=== PATIENT | male | born 1950 | race Caucasian/White ===

== ENCOUNTER 2016-06-08 15:23 | Emergency (ER) | payer MEDICARE ==
[~2016-06-08] VITALS: Ht 185.4 cm; Wt 99.8 kg
[2016-06-08 16:04] LABS: BASO # 0.1 10*3/uL (0.0-0.1); BASO % 0.8 % (0.0-1.0); EOS # 0.2 10*3/uL (0.0-0.4); EOS % 2.5 % (1.0-4.0); HEMATOCRIT 39.5 % (42.0-52.0); HEMOGLOBIN 13.5 g/dl (14.0-18.0); LYMPH # 1.5 10*3/uL (1.3-4.4); LYMPH % 19.3 % (27.0-41.0); MEAN CELL VOLUME 91.9 fl (80.0-94.0); MEAN CORPUSCULAR HGB 31.4 pg (27.0-31.0); MEAN CORPUSCULAR HGB CONC 34.2 g/dl (33.0-37.0); MEAN PLATELET VOLUME 11.1 fl (9.6-12.3); MONO # 0.8 10*3/uL (0.1-1.0); MONO % 10.3 % (3.0-9.0); NEUT # 5.1 10*3/uL (2.3-7.9); NEUT % 66.8 % (47.0-73.0); PLATELET COUNT AUTOMATED 179 10*3/uL (130-400); RED CELL DISTRI WIDTH 13.5 % (0-14.5); WHITE BLOOD COUNT 7.6 10*3/uL (4.8-10.8)
[2016-06-08 16:15] LABS: BUN 10 mg/dl (7-24); CARBON DIOXIDE 26 mmol/L (21-32); CHLORIDE 107 mmol/L (98-107); EST GLOM FILT AFRICAN AMERICAN > 60 ml/min; GLUCOSE 97 mg/dL (65-99); SODIUM 141 mmol/L (136-145)
== END 2016-06-08 18:07 | disposition short-term general hospital (02) ==
LOC: ED 15:23
PROVIDERS: Emergency Medicine
DX: I63.9 Cerebral infarction, unspecified (principal); Z86.73 Personal history of transient ischemic attack (TIA), and cerebral infarction without residual deficits

== ENCOUNTER → 2016-06-09 | Outpatient (CLI) | payer MEDICARE | END | disposition home or self-care (01) | LOC: CARD 02:09 | DX: I63.40 Cerebral infarction due to embolism of unspecified cerebral artery (principal) ==

== ENCOUNTER 2018-06-16 18:54 | Emergency (ER) | payer MEDICARE ==
[~2018-06-16] VITALS: Wt 86.2 kg
--- NOTE | ~2018-06-16 | EKG ---
[place], [place] ELECTROCARDIOGRAM REPORT NAME: WON BARLOW UNIT #: [id number] ROOM: DOCTOR: EPIPHANY DRAFT REPORT BIRTHDATE: [birth year] [facility] Test Date: 2018-06-16 Test Time: 19:27:37 Pat Name: WON BARLOW Department: ER Room: Gender: Wax Pourer: Jaky Ospina : 1950 Requested By: BRAD TA Order Number: [id number] Reading MD: Milton East MD Measurements Intervals [place] Rate: 64 P: 6 CA: 195 QRS: -17 QRSD: 85 T: 33 QT: 390 QTc: 403 Interpretive Statements Sinus rhythm Borderline left axis deviation Electronically Signed On 06-21-2018 15:04:46 PDT by Milton East MD CM:EKGRPT:ELECTROCARDIOGRAM REPORT 26 1504 BRAD TA MD EPIPHANY DRAFT REPORT BRAD TA MD
[2018-06-16 19:35] LABS: BASO # 0.1 10*3/uL (0.0-0.1); BASO % 0.9 % (0.0-1.0); EOS # 0.5 10*3/uL (0.0-0.4); EOS % 5.7 % (1.0-4.0); HEMATOCRIT 42.6 % (42.0-52.0); HEMOGLOBIN 14.1 g/dl (14.0-18.0); LYMPH # 2.2 10*3/uL (1.3-4.4); LYMPH % 26.2 % (27.0-41.0); MEAN CELL VOLUME 92.6 fl (80.0-94.0); MEAN CORPUSCULAR HGB 30.7 pg (27.0-31.0); MEAN CORPUSCULAR HGB CONC 33.1 g/dl (33.0-37.0); MEAN PLATELET VOLUME 10.8 fl (9.6-12.3); MONO # 0.8 10*3/uL (0.1-1.0); MONO % 9.7 % (3.0-9.0); NEUT # 4.8 10*3/uL (2.3-7.9); NEUT % 57.1 % (47.0-73.0); PLATELET COUNT AUTOMATED 179 10*3/uL (130-400); RED CELL DISTRI WIDTH 13.3 % (0-14.5); WHITE BLOOD COUNT 8.4 10*3/uL (4.8-10.8)
[2018-06-16 20:06] LABS: ALBUMIN 3.6 gm/dl (3.1-4.5); ALKALINE PHOSPHATASE 131 U/L (45-117); BUN 13 mg/dl (7-24); CHLORIDE 107 mmol/L (98-107); CREATININE 0.99 mg/dL (0.70-1.30); LIPASE 203 U/L (73-393); SGOT/AST 24 IU/L (3-35); SGPT/ALT 26 U/L (12-78); SODIUM 139 mmol/L (136-145); TOTAL PROTEIN 7.4 gm/dL (6.4-8.2)
[2018-06-16 20:11] LABS: TROPONIN I < 0.015 ng/ml (<0.045)
[2018-06-16 20:57] LABS: BILIRUBIN NEGATIVE (NEGATIVE); BLOOD NEGATIVE (NEGATIVE); CLARITY CLEAR (CLEAR); COLOR YELLOW (YELLOW); GLUCOSE NEGATIVE (NEGATIVE); KETONE NEGATIVE (NEGATIVE); LEUKO ESTERASE TRACE (NEGATIVE); NITRITE NEGATIVE (NEGATIVE); PH 5.5 (5.0-9.0); SPECIFIC GRAVITY 1.015 (1.005-1.030); UROBILINOGEN 0.2 E.U./dl (0.2-1.0)
[2018-06-16 21:11] LABS: BACTERIA TRACE
== END 2018-06-16 21:40 | disposition home or self-care (01) ==
LOC: ED 18:54
PROVIDERS: Emergency Medicine Emergency Medical Services
DX: F41.9 Anxiety disorder, unspecified (principal); R06.09 Other forms of dyspnea; I10 Essential (primary) hypertension; Z86.73 Personal history of transient ischemic attack (TIA), and cerebral infarction without residual deficits

== ENCOUNTER 2022-08-17 11:08 | Inpatient (IN) | payer MEDICARE ==
[~2022-08-17] VITALS: Ht 177.8 cm; Wt 87.3 kg
[~2022-08-17 11:08] MED LIST: AMOX-CLAV 875-1 EACH PO; ASPIRIN ADULT L81 M2 PO; ATORVASTATIN CA20 M1 PO; COMBIGAN 0.2%-0.5 ML OP; DORZOLAMIDE HYD10 ML OP; LIPITOR40 MG PO; LISINOPRIL10 M1 PO; LUMIGAN50 DRP OPH; MIRTAZAPINE7.5 MG PO; POTASSIUM CHLO20 ME3 PO
[2022-08-17 11:39] VITALS: BP 174/103
[2022-08-17 11:55] VITALS: BP 154/80
[2022-08-17 12:14] LABS: BASO # 0.1 10*3/uL (0.0-0.1); BASO % 1.2 % (0.0-1.0); EOS # 0.4 10*3/uL (0.0-0.4); EOS % 5.3 % (1.0-4.0); HEMATOCRIT 43.2 % (42.0-52.0); LYMPH # 1.7 10*3/uL (1.3-4.4); LYMPH % 21.8 % (27.0-41.0); MEAN CELL VOLUME 94.1 fl (80.0-94.0); MEAN CORPUSCULAR HGB 31.4 pg (27.0-31.0); MEAN CORPUSCULAR HGB CONC 33.3 g/dl (33.0-37.0); MEAN PLATELET VOLUME 10.7 fl (9.6-12.3); MONO # 0.7 10*3/uL (0.1-1.0); MONO % 9.5 % (3.0-9.0); NEUT # 4.8 10*3/uL (2.3-7.9); NEUT % 61.9 % (47.0-73.0); PLATELET COUNT AUTOMATED 171 10*3/uL (130-400); RED BLOOD COUNT 4.59 10*6/uL (4.50-5.90); RED CELL DISTRI WIDTH 13.1 % (0-14.5); WHITE BLOOD COUNT 7.7 10*3/uL (4.8-10.8)
[2022-08-17 12:25] LABS: ACT PARTIAL THROMBO TIME 27.5 SECONDS (20.0-32.1); INTERNATIONAL NORM RATIO 1.1 (2.0-3.5)
[2022-08-17 12:37] LABS: ALKALINE PHOSPHATASE 107 U/L (46-116); BUN 9 mg/dl (9-23); CHLORIDE 107 mmol/L (98-107); LIPASE 46 U/L (12-53); POTASSIUM 4.4 mmol/L (3.4-5.1); SGPT/ALT 25 U/L (10-49); TOTAL PROTEIN 7.3 gm/dL (6.0-8.0)
[2022-08-17 15:09] VITALS: BP 141/89
[2022-08-17 17:20] VITALS: BP 154/82
[2022-08-17 20:00] VITALS: BP 155/90
[2022-08-18] VITALS: BP 146/88
[2022-08-18 05:39] LABS: ALKALINE PHOSPHATASE 95 U/L (46-116); BUN 14 mg/dl (9-23); CHLORIDE 107 mmol/L (98-107); CHOLESTEROL 81 mg/dL (<200); LDL CHOLESTEROL 34 mg/dL (9-159); POTASSIUM 3.7 mmol/L (3.4-5.1); SGPT/ALT 20 U/L (10-49); TOTAL PROTEIN 6.3 gm/dL (6.0-8.0); TRIGLYCERIDES 67 mg/dl (<150)
[2022-08-18 05:41] LABS: VITAMIN D, 25-HYDROXY 48.7 ng/mL (30-100)
[2022-08-18 06:21] LABS: BASO # 0.1 10*3/uL (0.0-0.1); BASO % 0.7 % (0.0-1.0); EOS # 0.4 10*3/uL (0.0-0.4); EOS % 4.2 % (1.0-4.0); HEMATOCRIT 40.3 % (42.0-52.0); LYMPH # 1.8 10*3/uL (1.3-4.4); LYMPH % 19.5 % (27.0-41.0); MEAN CELL VOLUME 93.1 fl (80.0-94.0); MEAN CORPUSCULAR HGB 31.2 pg (27.0-31.0); MEAN CORPUSCULAR HGB CONC 33.5 g/dl (33.0-37.0); MEAN PLATELET VOLUME 11.5 fl (9.6-12.3); MONO # 0.7 10*3/uL (0.1-1.0); MONO % 7.5 % (3.0-9.0); NEUT # 6.4 10*3/uL (2.3-7.9); NEUT % 67.8 % (47.0-73.0); PLATELET COUNT AUTOMATED 159 10*3/uL (130-400); RED BLOOD COUNT 4.33 10*6/uL (4.50-5.90); RED CELL DISTRI WIDTH 13.1 % (0-14.5); WHITE BLOOD COUNT 9.4 10*3/uL (4.8-10.8)
[2022-08-18 06:26] LABS: ACT PARTIAL THROMBO TIME 27.9 SECONDS (20.0-32.1); INTERNATIONAL NORM RATIO 1.1 (2.0-3.5)
[2022-08-18 08:00] VITALS: BP 132/80
[2022-08-18 12:00] VITALS: BP 136/81
[2022-08-18] MEDS ORDERED: MECLIZINE HCL25 M2 PO (14:51)
[2022-08-18] MEDS ORDERED: NATURE'S BLEND F1 MG PO (14:51)
[2022-08-18 16:00] VITALS: BP 147/87
== END 2022-08-18 16:50 | disposition home or self-care (01) | DRG 149 ==
LOC: ED 11:08 → EDHOLD 14:59 → 4E 15:41
PROVIDERS: Emergency Medicine; ADMIT Internal Medicine; ATTEND Internal Medicine
DX: R42 Dizziness and giddiness (principal); E78.5 Hyperlipidemia, unspecified; R26.81 Unsteadiness on feet; F41.9 Anxiety disorder, unspecified; E53.8 Deficiency of other specified B group vitamins; I10 Essential (primary) hypertension; Z86.73 Personal history of transient ischemic attack (TIA), and cerebral infarction without residual deficits; Z82.3 Family history of stroke; Z82.49 Family history of ischemic heart disease and other diseases of the circulatory system; Z83.3 Family history of diabetes mellitus; Z79.82 Long term (current) use of aspirin; Z79.899 Other long term (current) drug therapy